=== PATIENT | female | born 1955 | race Caucasian/White ===

== ENCOUNTER 2024-02-23 10:23 | Emergency (ER) | payer MEDICARE, SELFPAY ==
--- NOTE | 2024-02-23 10:30 | DI.RAD.S_ITS ---
PROCEDURE: XR HAND RT MIN 3V INDICATIONS: fall,arm injury,bruising/swelling TECHNIQUE: 3 views of the hand(s) acquired. COMPARISON: None. FINDINGS: Bones: Generalized decreased osseous mineralization noted. Oblique fracture through the base of the 5th proximal phalanx with intra articular involvement of the 5th MCP. Soft tissues: No suspicious soft tissue calcifications. IMPRESSION: Oblique minimally displaced intra-articular 5th proximal phalangeal fracture Approved by: Joel Montiel M.D. on 02/23/2024 at 11:19
--- NOTE | 2024-02-23 10:30 | DI.RAD.S_ITS ---
PROCEDURE: XR FOREARM RT 2V INDICATIONS: fall,arm injury,bruising/swelling TECHNIQUE: 2 views of the forearm were acquired. COMPARISON: None. FINDINGS: Bones: No fractures or dislocations. No suspicious bony lesions. Soft tissues: No suspicious soft tissue calcifications or masses. Focal soft tissue swelling noted in the proximal forearm IMPRESSION: Focal proximal forearm nonspecific soft tissue swelling may reflect soft tissue hematoma given trauma. Correlate with clinical picture for differential possibilities Approved by: Joel Montiel M.D. on 02/23/2024 at 11:11
--- NOTE | 2024-02-23 10:30 | DI.RAD.S_ITS ---
PROCEDURE: XR HUMERUS RT 2V INDICATIONS: fall,arm injury,bruising/swelling TECHNIQUE: 2 views of the humerus were acquired. COMPARISON: None. FINDINGS: Bones: No fractures or dislocations. No suspicious bony lesions. Soft tissues: No suspicious soft tissue calcifications. IMPRESSION: No acute bony abnormality. Approved by: Joel Montiel M.D. on 02/23/2024 at 11:19
[2024-02-23 10:35] VITALS: BP 184/92; PULSE 94; RESP 18; TEMP 36.6; O2SAT 98; BMI 24.7
--- NOTE | 2024-02-23 11:07 | ED.FALL ---
HPI - Fall General Chief Complaint: Fall Stated Complaint: fell, right arm pain/lump Time Seen by Provider: 02/23/24 11:06 Source: patient Mode of arrival: Ambulatory History of Present Illness HPI Narrative: 69-year-old female fell from ground level 6 days ago and [facility], had significant bruising, did not seek medical care, was wearing some kind of Vel wrap, had increased swelling to the proximal forearm area of her bruising, was advised by friends to discontinue or lucid the compression, swelling seems to be improving, but significant hematoma bruising, patient concern about underlying blood clot or fracture. No shortness a breath or chest pain Related Data Home Medications Medication Instructions Recorded Confirmed atorvastatin 80 mg tablet 80 mg PO DAILY 02/23/24 02/23/24 ezetimibe 10 mg tablet 10 mg PO DAILY 02/23/24 02/23/24 fluoxetine 40 mg capsule 40 mg PO DAILY 02/23/24 02/23/24 levothyroxine 88 mcg tablet 88 mcg PO DAILY 02/23/24 02/23/24 trazodone 50 mg tablet 50 mg PO ONCE PM 02/23/24 02/23/24 valsartan 80 1 tab PO DAILY 02/23/24 02/23/24 mg-hydrochlorothiazide 12.5 mg tablet Allergies Allergy/AdvReac Type Severity Reaction Status Date / Time cephalexin [From Keflex] AdvReac Vomiting Verified 02/23/24 10:41 Review of Systems Review of Systems Narrative: see HPI Patient History Social History Smoking Status: Never smoker Smoking Status: Never smoker alcohol intake frequency: a few times a week Substance Use Type: does not use Exam Narrative Exam Narrative: GENERAL: Well-developed patient, in mild distress. HEAD: Atraumatic. Normocephalic. EYES: Pupils equal round and reactive. Extraocular motions intact. No scleral icterus. No injection or drainage. ENT: Nose without bleeding, purulent drainage. Throat without erythema, tonsillar hypertrophy or exudate. Airway patent. NECK: Trachea midline. Non tender CARDIOVASCULAR: Regular rate and rhythm without murmurs, gallops, or rubs. RESPIRATORY: Clear to auscultation. Breath sounds equal bilaterally. No wheezes, rales, or rhonchi. GASTROINTESTINAL: Abdomen soft, non-tender, nondistended. EXTREMITIES: Right upper extremity with hematoma and central liquid vacation consistent with a resolving one-week old hematoma, extending from the wrist/forearm to the distal mid upper arm, with dependent hematoma in the forearm. Can move wrist and elbow right side but with some discomfort, no shoulder discomfort. No injury to the left upper extremity, no obvious injuries to the lower extremity. BACK: Nontender without deformity or crepitance. No flank tenderness. Sacrum with old scar, no tenderness to low back midline or paraspinal musculature. No abrasions or contusions posterior thorax. NEURO: AOx3. Grossly nonfocal motor exam SKIN: No rash or erythema of visible areas Initial Vital Signs Initial Vital Signs: Vital Signs Temperature 98 F 02/23/24 10:35 Pulse Rate 94 H 02/23/24 10:35 Respiratory Rate 18 02/23/24 10:35 Blood Pressure 184/92 H 02/23/24 10:35 Pulse Oximetry 98 02/23/24 10:35 Oxygen Delivery Method Room Air 02/23/24 10:35 Course Orders Ordered: ED Orders 02/23/24 10:30 XR forearm RT 2V Stat XR hand RT min 3V Stat XR humerus RT 2V Stat 02/23/24 11:15 US periph venous up extrem rt Stat Vital Signs Vital signs: Vital Signs - 8 hr 02/23/24 10:35 Temperature 98 F Pulse Rate 94 H Respiratory Rate 18 Blood Pressure 184/92 H Pulse Oximetry 98 Oxygen Delivery Method Room Air MDM - Fall Imaging Data Extremity x-ray #1: Radiologist's Impression: [address] [address] XRay Report Signed Patient: Babita Galaviz MR#: [id number] : 1955 Acct:[id number] Age/Sex: 69 / F Date of Service: 02/23/24 Loc: ED Accession Number: [id number] Procedure: XR forearm RT 2V Ordering Provider: Dave Bacon MD PROCEDURE: XR FOREARM RT 2V INDICATIONS: fall,arm injury,bruising/swelling TECHNIQUE: 2 views of the forearm were acquired. COMPARISON: None. FINDINGS: Bones: No fractures or dislocations. No suspicious bony lesions. Soft tissues: No suspicious soft tissue calcifications or masses. Focal soft tissue swelling noted in the proximal forearm IMPRESSION: Focal proximal forearm nonspecific soft tissue swelling may reflect soft tissue hematoma given trauma. Correlate with clinical picture for differential possibilities Approved by: Joel Montiel M.D. on 02/23/2024 at 11:11 Extremity x-ray #2: Radiologist's Impression: Close Peripheral Vascular Ultrasound (Signed) Dinesh,Joel - 02/23/24 Hand X-Ray 02/23/24 Humerus X-Ray (Signed) Dinesh,Joel - 02/23/24 Forearm X-Ray (Signed) Dinesh,Joel - 02/23/24 Launch?Image [address] [address] XRay Report Signed Patient: Babita Galaviz MR#: [id number] : 1955 Acct:[id number] Age/Sex: 69 / F Date of Service: 02/23/24 Loc: ED Accession Number: [id number] Procedure: XR humerus RT 2V Ordering Provider: Dave Bacon MD PROCEDURE: XR HUMERUS RT 2V INDICATIONS: fall,arm injury,bruising/swelling TECHNIQUE: 2 views of the humerus were acquired. COMPARISON: None. FINDINGS: Bones: No fractures or dislocations. No suspicious bony lesions. Soft tissues: No suspicious soft tissue calcifications. IMPRESSION: No acute bony abnormality. Approved by: Joel Montiel M.D. on 02/23/2024 at 11:19 US venous doppler Right Upper Ext: Radiologist's Impression: [address] [address] Ultrasound Report Signed Patient: Babita Galaviz MR#: [id number] : 1955 Acct:[id number] Age/Sex: 69 / F Date of Service: 02/23/24 Loc: ED Accession Number: [id number] Procedure: US periph venous up extrem rt Ordering Provider: Dave Bacon MD PROCEDURE: US PERIPH VENOUS UP EXTREM RT INDICATIONS: fall 6d ago, hematomas on exam, pt concern for DVT TECHNIQUE: Real-time imaging, as well as color and pulse Doppler interrogation, was performed of the upper extremity deep veins from the inferior neck to the antecubital fossa. COMPARISON: None. FINDINGS: The internal jugular vein, visualized portions of the subclavian vein, axillary, and brachial veins are free of intraluminal thrombus. Where physically possible, the veins are normally compressible. Color and pulse Doppler demonstrate normal intraluminal flow, with expected phasicity and pulsatility. Additional scanning of the cephalic and basilic veins of the superficial system demonstrates normal compressibility, without thrombus. Complex hyperdense subcutaneous fluid collection noted in the proximal forearm measures 4.5 x 3.9 x 0.9 cm. No internal vascularity. IMPRESSION: No findings of upper extremity deep venous thrombosis can be seen. Complex subcutaneous forearm fluid collection without internal vascularity Approved by: Joel Montiel M.D. on 02/23/2024 at 12:33 MDM Narrative Medical decision making narrative: 69-year-old female with fall 6 days ago and [facility], resolving hematoma right upper extremity, patient concerned about blood clots, there is a small area proximal forearm 4 cm with central fluctuance, no expressible fluid, likely liquefying hematoma, also hematoma dependent positions upper extremities, with some central yellow/brown coloration consistent with liquefying old hematoma. No significant swelling to the arm, in fact patient reports swelling is significantly decreased from initial injury. Patient has concern about blood clots to the right upper arm. X-rays right arm forearm wrist requested. Ultrasound venous Doppler right upper extremity requested. X-rays right forearm and arm and hand without obvious fractures, my wet read, await Radiology over-reads. Ultrasound right upper extremity with no DVT changes per sono tech verbal report, small soft tissue fluid collection hematoma noted, that appears to have debris/clot inside. Await Radiology over reading X-ray reports and ultrasound reports as above no new findings, see radiology dictation reports Had offered needle aspiration or open incision drainage of hematoma right forearm, patient declined. Follow up with local provider recheck next 2-3 days advised. Return precautions discussed Discharge Plan Departure Patient Disposition: Home Clinical Impression: Hematoma, Contusion of arm, right, multiple sites Activity Restrictions/Additional Instructions: Fall in [facility] about 6 days ago, with swelling to right hand forearm and upper arm, decreasing swelling but discoloration and a residual fluid bump noted. X-rays without obvious fractures. Ultrasound showed small fluid collection in the soft tissue with complex debris that could be clot. We did discussed cutting this open, or trying to aspirate with a needle, but it might have congenital meant of clot and not necessarily decrease in size. You wanted to hold off on any interventions at this time. Hopefully this will continue to resolve on its own, as the swelling areas have continue to decrease by your report. No fever noted on triage vital signs. Recheck with your regular doctor in the next couple of days, or with Orthopedic surgery in the next couple of days, to further assess progress of hopefully continuing to resolved hematoma in the soft tissues of your right upper extremity. Return to this/nearest emergency department for any change worsening symptoms or any concerns prior Prescriptions: No Action fluoxetine 40 mg capsule 40 mg PO DAILY atorvastatin 80 mg tablet 80 mg PO DAILY trazodone 50 mg tablet 50 mg PO ONCE PM valsartan-hydrochlorothiazide 80-12.5 mg tablet 1 tab PO DAILY levothyroxine 88 mcg tablet 88 mcg PO DAILY ezetimibe 10 mg tablet 10 mg PO DAILY Stand Alone Forms: Patient Portal/API
--- NOTE | 2024-02-23 11:15 | DI.US.S_ITS ---
PROCEDURE: US PERIPH VENOUS UP EXTREM RT INDICATIONS: fall 6d ago, hematomas on exam, pt concern for DVT TECHNIQUE: Real-time imaging, as well as color and pulse Doppler interrogation, was performed of the upper extremity deep veins from the inferior neck to the antecubital fossa. COMPARISON: None. FINDINGS: The internal jugular vein, visualized portions of the subclavian vein, axillary, and brachial veins are free of intraluminal thrombus. Where physically possible, the veins are normally compressible. Color and pulse Doppler demonstrate normal intraluminal flow, with expected phasicity and pulsatility. Additional scanning of the cephalic and basilic veins of the superficial system demonstrates normal compressibility, without thrombus. Complex hyperdense subcutaneous fluid collection noted in the proximal forearm measures 4.5 x 3.9 x 0.9 cm. No internal vascularity. IMPRESSION: No findings of upper extremity deep venous thrombosis can be seen. Complex subcutaneous forearm fluid collection without internal vascularity Approved by: Joel Montiel M.D. on 02/23/2024 at 12:33
[2024-02-23 14:27] VITALS: BP 175/108; PULSE 78; RESP 20; O2SAT 98
--- NOTE | 2024-02-23 14:44 | PC.NURSE ---
Pt requesting to have her arm checked for infection now. Dr Bacon aware
== END 2024-02-23 14:55 | disposition home or self-care (01) ==
PROVIDERS: Emergency Provider Emergency Medicine
DX: S40.021A Contusion of right upper arm, initial encounter (principal); W18.30XA Fall on same level, unspecified, initial encounter
CPT/HCPCS: 73060; 73090; 73130; 93971; 99281; 99283

== ENCOUNTER 2024-03-09 23:00 | Emergency (ER) | payer MEDICARE, SELFPAY ==
[2024-03-09 23:03] VITALS: PULSE 85; O2SAT 97
[2024-03-09 23:04] VITALS: BP 136/90; PULSE 89; O2SAT 97
[2024-03-09 23:07] VITALS: BP 136/90; PULSE 90; RESP 20; TEMP 36.7; O2SAT 97
--- NOTE | 2024-03-09 23:14 | DI.RAD.S_ITS ---
PROCEDURE: XR SACRUM COCCYX MIN 2V INDICATIONS: TAILBONE PAIN TECHNIQUE: 3 views of the sacrum and coccyx acquired. COMPARISON: None. FINDINGS: Bones: No fractures or dislocations. No suspicious bony lesions. Soft tissues: Visualized bowel gas pattern is normal. No suspicious soft tissue densities. IMPRESSION: Intact sacrum and coccyx. Dictated by: Nayana Vega M.D. on 03/10/2024 at 0:13 Approved by: Nayana Vega M.D. on 03/10/2024 at 0:14
--- NOTE | 2024-03-09 23:23 | ED_ITS ---
HPI - Back Pain/Injury General Chief Complaint: Back Pain/Injury Stated Complaint: ETOH Time Seen by Provider: 03/09/24 23:08 Source: patient History of Present Illness HPI Narrative: 69-year-old female presents for tailbone pain for the last 2 weeks. Patient is seen in this emergency department 2 weeks prior for evaluation after a ground level fall. Patient states that she had tailbone pain at that time but she was so distracted by her right-sided pain that she forgot to mention it to the doctor at that time. She reports extreme to satisfaction that she was not discharged with any pain medications. Patient verbally abusive towards nursing staff. Screaming that she wants pain medications. Related Data Home Medications Medication Instructions Recorded Confirmed atorvastatin 80 mg tablet 80 mg PO DAILY 02/23/24 02/23/24 ezetimibe 10 mg tablet 10 mg PO DAILY 02/23/24 02/23/24 fluoxetine 40 mg capsule 40 mg PO DAILY 02/23/24 02/23/24 levothyroxine 88 mcg tablet 88 mcg PO DAILY 02/23/24 02/23/24 trazodone 50 mg tablet 50 mg PO ONCE PM 02/23/24 02/23/24 valsartan 80 1 tab PO DAILY 02/23/24 02/23/24 mg-hydrochlorothiazide 12.5 mg tablet Previous Rx's Medication Instructions Recorded hydrocodone 5 mg-acetaminophen 325 1 tab PO Q8H PRN pain #8 tabs 03/10/24 mg tablet Allergies Allergy/AdvReac Type Severity Reaction Status Date / Time cephalexin [From Keflex] AdvReac Vomiting Verified 02/23/24 10:41 Patient History Social History Smoking Status: Never smoker Smoking Status: Never smoker alcohol intake frequency: a few times a week Substance Use Type: does not use Exam Initial Vital Signs Initial Vital Signs: Vital Signs Pulse Rate 85 03/09/24 23:03 Pulse Oximetry 97 03/09/24 23:03 Const: Awake, alert, appears chronically unwell MSK: Atraumatic, pain in lower back just above gluteal cleft. No stepoffs, no obvious deformity Rectal: Analog [employer] Engineer present. Tone intact Skin: Warm, Dry, intact, no rashes Neuro: AO x3, CN II-XII grossly intact, moves all extremities Course Orders Ordered: ED Orders 03/09/24 23:14 XR sacrum coccyx min 2V Stat 03/10/24 00:21 CT pelvis wo con Stat 03/10/24 01:04 Chest [XR chest 1V] Stat EKG-12 Lead Stat 03/10/24 01:30 CBC Auto Diff [Complete Blood Count AUTO DIFF] Stat CMP [Comprehensive Metabolic Panel] Stat Troponin & CK Cardiac Panel Stat Discontinued Medications Hydrocodone Bitart/Acetaminophen (Hydrocodone/Acet 5/325 Tablet) 1 tab PO NOW ONE Stop: 03/10/24 00:07 Last Admin: 03/10/24 00:17 Dose: 1 tab Documented By: IRMA Vital Signs Vital signs: Vital Signs - 8 hr 03/09/24 23:03 03/09/24 23:04 03/09/24 23:04 Temperature Pulse Rate 85 89 Respiratory Rate Blood Pressure 136/90 Pulse Oximetry 97 97 Oxygen Delivery Method 03/09/24 23:07 03/10/24 00:30 03/10/24 00:30 Temperature 98.1 F Pulse Rate 90 73 Respiratory Rate 20 18 Blood Pressure 136/90 138/83 Pulse Oximetry 97 97 Oxygen Delivery Method Room Air Room Air 03/10/24 02:38 Temperature Pulse Rate 87 Respiratory Rate 18 Blood Pressure 141/78 H Pulse Oximetry 97 Oxygen Delivery Method Room Air MDM - Back Pain/Injury Lab Data 03/10/24 01:30 03/10/24 01:30 Labs: Lab Results 03/10/24 Range/Units 01:30 WBC 7.1 (4.5-11.0) X10^3/uL RBC 4.10 (4.0-5.2) X10^6/uL Hgb 13.8 (12.0-16.0) g/dL Hct 40.6 (36-46) % MCV 99.0 (80-100) fL MCH 33.7 (26-34) PG MCHC 34.0 (30-36) % RDW 13.5 (11.6-14.8) % Plt Count 215 (150-400) X10^3/uL Neut % (Auto) 49.8 L (50-75) % Lymph % (Auto) 39.6 (25-40) % Morrill % (Auto) 6.7 (3-14) % Eos % (Auto) 2.6 (2-4) % Baso % (Auto) 1.3 (0-2) % Neut # (Auto) 3500 (5168-3240) /uL Lymph # (Auto) 2800 (9659-6069) /uL Morrill # (Auto) 500 (0-900) /uL Eos # (Auto) 200 (0-450) /uL Baso # (Auto) 100 (0-100) /uL Sodium 139 (137-145) mmol/L Potassium 3.5 (3.4-5.1) mmol/L Chloride 107 (98-107) mmol/L Carbon Dioxide 19 L (22-32) mmol/L BUN 11 (7-17) mg/dL Creatinine 0.55 (0.52-1.04) mg/dL Estimated GFR > 60 (>60) mL/min BUN/Creatinine Ratio 20.0 (6-22) Glucose 78 L (80-110) mg/dL Calcium 9.0 (8.4-10.2) mg/dL Total Bilirubin 1.2 (0.2-1.3) mg/dL AST 37 H (14-36) IU/L ALT 24 (<35) IU/L Alkaline Phosphatase 65 (38-126) U/L Total Creatine Kinase 269 H (30-135) U/L Troponin I < 0.012 (0.01-0.034) ng/mL Total Protein 7.8 (6.3-8.2) g/dL Albumin 4.5 (3.5-5.0) g/dL Globulin 3.3 (1.7-4.1) g/dL Albumin/Globulin Ratio 1.4 (1.0-2.8) Imaging Data CT scan - abdomen/pelvis: Radiologist's Impression: PROCEDURE: CT PEL WO CON INDICATIONS: severe sacral/pelvic pain, neg XR TECHNIQUE: Noncontrast 3 mm axial sections acquired through the bony pelvis, with coronal and sagittal reformatting. COMPARISON: None. FINDINGS: Image quality: Excellent. Bones: Minimally displaced and slightly impacted transverse fracture at the S5 vertebral body. No other visible pelvic fracture. Mild bilateral hip joint degeneration. Soft tissues: The urinary bladder is diffusely distended. No bladder wall thickening. The uterus is absent. No pelvic hematoma. No adenopathy. Visible bowel loops and vasculature are within normal limits. IMPRESSION: Minimally displaced S5 fracture. Dictated by: Nayana Vega M.D. on 03/10/2024 at 2:11 Approved by: Nayana Vega M.D. on 03/10/2024 at 2:14 ECG Data Interpretation: Normal sinus rhythm at 77 beats per minute. Normal CO. No ST depressions or elevations, T-wave inversions in V3 through V6, now priors for comparison MDM Narrative Medical decision making narrative: Brought in by EMS for 2 weeks of tailbone pain that has not evaluated at her previous ER visit because she states she forgot to tell the ER doctor about it. Isolated pain above gluteal cleft over sacral region. Patient denies new accidents or injuries. Patient verbally abusive to ER nursing staff, screaming that she would like pain medications. P.o. medication ordered at this time. CT imaging of coccyx and sacrum negative for acute findings. Patient continues to report severe pain, stating that the medications given have done nothing for her pain and she it was not being treated. Continues to scream obscenities at nursing staff and throw things on the ground. Patient then told nursing staff that she was having left-sided chest pain and threatening to call 911 stating that we were not treating her and she was having a heart attack. Patient demanding to leave, and only decided to stay after finding out that taxi cab services do not run at this time. EKG normal sinus rhythm, no ST elevations. Small T-wave inversions seen in anterolateral leads, however no priors for comparison. Since the patient's sacral pain not explained by x-ray imaging a CT of the pelvis will be ordered as well as chest x-ray imaging. Laboratory work ordered. Laboratory work is reviewed, no significant abnormalities identified. Troponin undetectable. Chest x-ray negative for acute findings. CT pelvis shows minimally displaced S5 fracture, which would explain patient's pain. Patient sitting comfortably in ED bed. She states that she was very happy that she has a diagnosis and that she will be getting pain medications. Discharge Plan Departure Patient Disposition: Home Clinical Impression: Closed fracture of sacrum, Inappropriate behavior Instructions: Sacral Stress Fracture Activity Restrictions/Additional Instructions: You have a small fracture of the tip of your sacrum. Apply ice as needed to areas of pain and sit on a pillow or inflatable donut to help relieve pain. Take Tylenol for pain. A short course of pain medications has been prescribed. Do not take this medication with alcohol or before driving as it can cause drowsiness. Prescriptions: New hydrocodone-acetaminophen 5-325 mg tablet 1 tab PO Q8H PRN (Reason: pain) Qty: 8 0RF No Action fluoxetine 40 mg capsule 40 mg PO DAILY atorvastatin 80 mg tablet 80 mg PO DAILY trazodone 50 mg tablet 50 mg PO ONCE PM valsartan-hydrochlorothiazide 80-12.5 mg tablet 1 tab PO DAILY levothyroxine 88 mcg tablet 88 mcg PO DAILY ezetimibe 10 mg tablet 10 mg PO DAILY Stand Alone Forms: Patient Portal/API
--- NOTE | 2024-03-09 23:40 | PC.NURSE ---
Addendum entered by Khushbu Vásquez CNA 03/10/24 02:22: PROCESS MANAGER note: Patient has been constantly mumbling insult and cursing at staff since she got back from . When patient uses call light, patient is very polite saying god bless your soul. But as we leave the room patient is insulting us. Patient is calling a lot asking for things to drink, food, etc. When we explain she can't have anything to drink she rolls her eyes. I gave her mouth swabs. Patient then told me don't fall asleep at your desk, and god bless your soul. Patient came out and said I want your name and badge numbers. I will be reporting you to the authorities. Jimena reminded patient she cannot continue to threaten staff and if she does so, she will be forced to leave. Patient then demanded again Jimena's name and said you're doing nothing. Patient came up to me and demanded my name. Patient said she hasn't seen the doctor. I told her she has multiple times. Patient claims she hasn't. I attempted to leave the conversation by asking patient to go into her room. Patient continues to call out, and demand things. Patient has told me multiple times she cannot walk, and patient has been pacing the room and to the nurse's station. ranch helper Holly aware. Addendum entered by Khushbu Vásquez CNA 03/10/24 01:13: VICKIE note: Patient came out holding her phone. Patient asked may I please have a blanket? I didn't say anything. VICKIE Hess, said no. Patient asked what did you say? looking at me. I said I didn't say anything. Patient then said well did you hear what I asked? May I please have a blanket? Jimena said No. We have given you blankets and you have thrown them on the ground. Patient frowned at me. I said our rational is we have to conserve--- patient cut me off and yelled I've been recording you. Told cupola charger insulationHERIBERTO Kuhn immediately. Addendum entered by Khushbu Vásquez CNA 03/10/24 00:59: PROCESS MANAGER note: Patient came out of the room yelling. Patient began cursing at staff, and I said hey no cursing at staff. I'm not cursing. I said yes you are. Patient yelled liar! at me. I walked out and patient said loudly enough for the entire department bitch directed at me. I sat at my desk. Original Note: VICKIE note: Patient was yelling. VICKIE Hess, went in to help. I walked outside the room, patient threw underpants covered in feces at [facility]. She said I shit my pants. Jimena waited and the patient said you need to clean my ass. Patient continued to yell at [facility]. Jimena shut the door. Patient continued to yell I shit myself! You need to clean me. I waited. I finally walked in. She told me I shit myself. You need to clean me. I told her I am here to clean her, but she ... you don't get to throw your feces covered underwear at my coworkers. Patient then started to curse and yell that we were leaving her in my own shit. I stopped her and said she doesn't get to curse at me and my coworkers, and I asked can you get up and walk? Obviously not! I'm in too much fucking pain. And you won't fucking clean me. I paused her and said again no cursing. I said I am here to clean you. You don't let babies sit in their own shit. I worked with little kids and I didn't let them sit in their own shit. I cleaned her up and said that we don't allow our coworkers to be yelled profanities asked. I set a firm boundary that she could not cuss at us and I won't tolerate that. And I reminded patient to be nice. I left patient after I cleaned her up. Patient yelled less than a minute after I left yelling for a blanket. I walked in and told her she doesn't scream that needs a blanket, she has a call light. Well no one heather told--- I cut patient off and said again no cursing at hospital staff. Patient began to whine that she was sorry. I said well now I reiterated that. I can get you a blanket. But before I do, one of the smartest people I know, who is a great man taught me a lesson here. Be nice. Be nice to people, it helps. So be nice to us. We are human too. Well I'm fucking cold. Got patient a blanket. A minute after leaving patient demanded water and food. I told her we can't get her anything until we get the scans back. Patient called again demanding something. I need my purse! I asked if she threw her purse down and now wants me to get it. I don't fucking remember. Again, stop cussing. It's considered a class C felony to be aggressive towards healthcare workers, this is aggressive. Well I didn't fucking know that. Patient has continued to yell and cuss at us.
--- NOTE | 2024-03-10 00:10 | PC.NURSE ---
Pt reports pain to her left ribs that just started. Provider Jonatan made aware. No new orders at this time.
[2024-03-10] MEDS: HYDROCODONE/ACET 5/325 TABLET 1 TAB PO (00:17)
--- NOTE | 2024-03-10 00:21 | DI.CT.S_ITS ---
PROCEDURE: CT PEL WO CON INDICATIONS: severe sacral/pelvic pain, neg XR TECHNIQUE: Noncontrast 3 mm axial sections acquired through the bony pelvis, with coronal and sagittal reformatting. COMPARISON: None. FINDINGS: Image quality: Excellent. Bones: Minimally displaced and slightly impacted transverse fracture at the S5 vertebral body. No other visible pelvic fracture. Mild bilateral hip joint degeneration. Soft tissues: The urinary bladder is diffusely distended. No bladder wall thickening. The uterus is absent. No pelvic hematoma. No adenopathy. Visible bowel loops and vasculature are within normal limits. IMPRESSION: Minimally displaced S5 fracture. Dictated by: Nayana Vega M.D. on 03/10/2024 at 2:11 Approved by: Nayana Vega M.D. on 03/10/2024 at 2:14
[2024-03-10 00:30] VITALS: BP 138/83; PULSE 73; RESP 18; O2SAT 97
--- NOTE | 2024-03-10 00:48 | PC.NURSE ---
Pt had called 911 stating we were not giving her pain medications. She had just previously received a [employer].
--- NOTE | 2024-03-10 01:04 | DI.RAD.S_ITS ---
PROCEDURE: XR CHEST 1V INDICATIONS: chest pain TECHNIQUE: One view of the chest was acquired. COMPARISON: None. FINDINGS: Surgical changes and devices: None. Lungs and pleura: Lungs are clear. No pleural effusions or pneumothorax. Mediastinum: Mediastinal contours appear normal. Heart size is normal. Bones and chest wall: No suspicious bony lesions. Overlying soft tissues appear unremarkable. IMPRESSION: No acute cardiopulmonary abnormality is seen. Approved by: Nishi Mcgovern M.D.,Ph.D. on 03/10/2024 at 8:35
--- NOTE | 2024-03-10 01:15 | PC.NURSE ---
security called for pt yelling and cursing at staff pt demanding food, water, clothes, a taxi- voucher and to go to another hospital, pt stopped yelling when she learned that the taxi service was not running at this time and stated well I guess I'll have to stay now, Security in to speak with pt and explain the no tolerance policy
--- NOTE | 2024-03-10 01:23 | EKG_ITS ---
[facility] [id number] [place] [id number] Test Date: 2024-03-10 Pat Name: Babita Galaviz Department: Room: Gender: Female Diffusion Operator: : [id number] Requested By: Order Number: [id number] Reading MD: Levon Wilson Measurements Intervals [place] Rate: 77 P: 74 KS: 146 QRS: 6 QRSD: 92 T: -25 QT: 430 QTc: 486 Interpretive Statements Normal sinus rhythm ST & T wave abnormality, consider anterior ischemia Prolonged QT Electronically Signed On 03-21-2024 17:55:50 PDT by Levon Wilson
[2024-03-10 01:54] LABS: Add Manual Diff / Slide Review NO; Basophils Absolute Auto 100 /uL (0-100); Basophils Percent Auto 1.3 % (0-2); Eosinophils Absolute Auto 200 /uL (0-450); Eosinophils Percent Auto 2.6 % (2-4); Hematocrit 40.6 % (36-46); Hemoglobin 13.8 g/dL (12.0-16.0); Lymphocytes Absolute Auto 2800 /uL (1100-4500); Lymphocytes Percent Auto 39.6 % (25-40); Mean Corpuscular Hemoglobin 33.7 PG (26-34); Monocytes Absolute Auto 500 /uL (0-900); Monocytes Percent Auto 6.7 % (3-14); Neutrophils Absolute Auto 3500 /uL (1500-7000); Neutrophils Percent Auto 49.8 % (50-75); Platelet Count 215 X10^3/uL (150-400); Red Cell Distribution Width 13.5 % (11.6-14.8); White Blood Cell Count 7.1 X10^3/uL (4.5-11.0)
[2024-03-10 02:03] LABS: Alanine Aminotransferase 24 IU/L (<35); Albumin 4.5 g/dL (3.5-5.0); Albumin Globulin Ratio 1.4 (1.0-2.8); Alkaline Phosphatase 65 U/L (38-126); Aspartate Aminotransferase 37 IU/L (14-36); Bilirubin Total 1.2 mg/dL (0.2-1.3); Blood Urea Nitrogen 11 mg/dL (7-17); Carbon Dioxide 19 mmol/L (22-32); Chloride 107 mmol/L (98-107); Creatine Kinase 269 U/L (30-135); Estimated Glomerular Filt Rate > 60 mL/min (>60); Globulin 3.3 g/dL (1.7-4.1); Glucose 78 mg/dL (80-110); HEMOLYSIS < 15 (0-50); Potassium 3.5 mmol/L (3.4-5.1); Sodium 139 mmol/L (137-145); Total Protein 7.8 g/dL (6.3-8.2)
[2024-03-10 02:14] LABS: Troponin I < 0.012 ng/mL (0.01-0.034)
[2024-03-10 02:38] VITALS: BP 141/78; PULSE 87; RESP 18; O2SAT 97
== END 2024-03-10 02:47 | disposition home or self-care (01) ==
PROVIDERS: Emergency Provider Emergency Medicine
DX: S32.10XA Unspecified fracture of sacrum, initial encounter for closed fracture (principal); R10.2 Pelvic and perineal pain; W18.30XA Fall on same level, unspecified, initial encounter
CPT/HCPCS: 71045; 72192; 72220; 80053; 82550; 84484; 85025; 99283; 99284